=== PATIENT | female | born 1945 | race Hispanic/Latino ===

== ENCOUNTER → 2017-05-05 | Outpatient (CLI) | payer OTHER ==
[~2017-05-05] MED LIST: ASPI-555 PO; CALCIUM PO; CELE200 PO; DEXL60CA3 PO; DOCU-116 PO; FLUT16H NASAL; LACT1CAP78 PO; ROSU5TAB PO; TELM1TAB4 PO; VIT PO; ZOLP10TA6 PO
== END | disposition home or self-care (01) ==
LOC: OIH 12:56
PROVIDERS: ATTEND Internal Medicine
DX: Z01.818 Encounter for other preprocedural examination (principal); I10 Essential (primary) hypertension
CPT/HCPCS: 71046

== ENCOUNTER → 2017-11-08 | Outpatient (CLI) | payer OTHER | END | disposition home or self-care (01) | LOC: RAH 10:47 | PROVIDERS: ATTEND Internal Medicine | DX: Z12.31 Encounter for screening mammogram for malignant neoplasm of breast (principal) | CPT/HCPCS: 77067 ==

== ENCOUNTER → 2018-09-20 | Outpatient (CLI) | payer OTHER | END | disposition home or self-care (01) | LOC: OIH 09:50 | PROVIDERS: ATTEND Internal Medicine | DX: M16.11 Unilateral primary osteoarthritis, right hip (principal) | CPT/HCPCS: 73502 ==

== ENCOUNTER → 2020-08-05 | Outpatient (CLI) | payer MEDICARE ==
[~2020-08-05] MED LIST changes: -ASPI-555 PO; +ASPI-556 PO
== END | disposition home or self-care (01) ==
LOC: RAH 10:54
PROVIDERS: ATTEND Internal Medicine
DX: Z12.31 Encounter for screening mammogram for malignant neoplasm of breast (principal); Z00.01 Encounter for general adult medical examination with abnormal findings
CPT/HCPCS: 77067

== ENCOUNTER → 2022-12-09 | Outpatient (CLI) | payer MEDICARE | END | disposition home or self-care (01) | LOC: RAH 11:47 | PROVIDERS: ATTEND Internal Medicine | DX: K57.90 Diverticulosis of intestine, part unspecified, without perforation or abscess without bleeding (principal); R10.9 Unspecified abdominal pain; M47.815 Spondylosis without myelopathy or radiculopathy, thoracolumbar region; R16.0 Hepatomegaly, not elsewhere classified; I70.0 Atherosclerosis of aorta; T18.2XXA Foreign body in stomach, initial encounter; Y92.89 Other specified places as the place of occurrence of the external cause | CPT/HCPCS: 74176 ==

== ENCOUNTER → 2023-08-24 | Outpatient (CLI) | payer MEDICARE | END | disposition home or self-care (01) | LOC: RAH 14:42 | PROVIDERS: ATTEND Internal Medicine | DX: R59.0 Localized enlarged lymph nodes (principal); N63.10 Unspecified lump in the right breast, unspecified quadrant | CPT/HCPCS: 76882 ==

== ENCOUNTER → 2023-08-31 | Outpatient (CLI) | payer MEDICARE | END | disposition home or self-care (01) | LOC: RAH 14:21 | PROVIDERS: ATTEND Internal Medicine | DX: N63.11 Unspecified lump in the right breast, upper outer quadrant (principal); R92.323 Mammographic fibroglandular density, bilateral breasts; R59.1 Generalized enlarged lymph nodes | CPT/HCPCS: 77066 ==

== ENCOUNTER → 2023-12-08 | Outpatient (CLI) | payer MEDICARE | END | disposition home or self-care (01) | LOC: RAH 13:36 | PROVIDERS: ATTEND Student in an Organized Health Care Education/Training Program | DX: R06.02 Shortness of breath (principal) | CPT/HCPCS: 93306; 93356 ==

== ENCOUNTER 2023-12-19 16:01 | Inpatient (IN) | payer MEDICARE ==
[~2023-12-19] VITALS: Ht 165.1 cm; Wt 108.3 kg
[2023-12-19] MEDS: 0.9%NACL 1000ML 1,000 ML IV ONE (17:44)
--- NOTE | 2023-12-19 17:48 | ERN ---
General Chief Complaint: Direct Admit Stated Complaint: ORTHOSTATIC HYPOTENTION Time Seen by MD: 17:26 Source: patient, family History of Present Illness Initial Comments Patient is a 78-year-old female with a history of right breast cancer recently diagnosed. She was sent in by Dr. Simmons her microsoft access developer for evaluation of possible dehydration. Patient has been receiving chemotherapy and was recently seen at another hospital discharged shortly after being evaluated and found to have elevated white blood cell count. Patient states Dr. Fountain her oncologist advised her continues chemotherapy until lumpectomy was performed. Dr. Pacheco is her primary care physician Allergies: Coded Allergies: butorphanol (Unverified Allergy, Severe, throat closes up, 10/06/14) codeine (Unverified Allergy, Severe, throat closes up, 10/06/14) morphine (Unverified Allergy, Severe, breathing problems, throat closes up, 10/06/14) moxifloxacin (Unverified Allergy, Intermediate, hives, 10/06/14) NSAIDS (Non-Steroidal Anti-Inflamma (Unverified Allergy, Unknown, blisters, 10/06/14) ciprofloxacin (Unverified Allergy, Unknown, diarrhea, 10/06/14) Uncoded Allergies: histavent (Allergy, Unknown, hives, 10/06/14) Home Meds Reported Medications [calcium /vit d3] No Conflict Check, 1 TAB PO tues,thurs,sat 600mg/800mg 11/26/15 Docusate Sodium (Colace) 100 Mg Capsule, 100 MG PO DAILY, CAP 11/26/15 Aspirin (Aspir 81) 81 Mg Tablet.dr, 81 MG PO AM, TAB 10/06/14 Lactobacillus Combo No.11 (Probiotic) 1 Each Cap.sprink, 1 EACH PO AM, CAP.SPRINK 10/06/14 Celecoxib (Celebrex 200Mg Cap) 200 Mg Cap, 200 MG PO AM, CAP 10/06/14 Zolpidem Tartrate (Zolpidem Tartrate) 10 Mg Tablet, 10 MG PO PM, TAB 10/06/14 Rosuvastatin Calcium (Crestor) 5 Mg Tablet, 5 MG PO PM, TAB 10/06/14 Telmisartan/Hydrochlorothiazid (Micardis Hct 40-12.5 mg Tablet) 1 Each Tablet, 1 EACH PO AM, TAB 10/06/14 Dexlansoprazole (Dexilant) 60 Mg , 60 MG PO AM 10/06/14 Fluticasone Propionate (Flonase Nasal [place]) 50 Mcg/[place], 50 MCG NASAL AM, SPRAY 10/06/14 Past Medical History Past Medical History: Diabetes-Type II, Hypertension Medical History Other: CA- RIGHT BREAST Past Surgical History: Other Surgical History Other: RIGHT KNEE, ROS Dictation CONSTITUTIONAL: No chills, no fever, no weakness, no diaphoresis, no malaise. HEAD/FACE: No signs of trauma. EENT: No eye pain, no blurred vision, no tearing, no double vision, no ear pain, no ear discharge, no nose pain, no nasal congestion, no throat pain, no throat swelling, no mouth pain. RESPIRATORY: No cough, no orthopnea, no SOB, no stridor, no wheezing. CARDIOVASCULAR: No chest pain, no edema, no palpitations, no syncope. GASTROINTESTINAL/ABDOMINAL: No abdominal pain, no constipation, no diarrhea, no nausea, no vomiting. GENITOURINARY: No abnormal discharge, no dysuria, no frequent urination, no hematuria. No complaints of pain in the genitals. MUSCULOSKELETAL: No back pain, no gout, no joint pain, no joint swelling, no muscle pain, no muscle stiffness, no neck pain. INTEGUMENTARY: No change in color, no change in hair/nails, no dryness, no lesion, no lumps, no rash. NEUROLOGICAL/PSYCH: No anxiety, not depressed, no emotional problem, no headache, no numbness, no pre-existing deficit, no history of seizures, no tremors, no weakness. HEMATOLOGIC/LYMPHATIC: Not anemic, no history of blood clots, no apparent bleeding, no bruising, glands not swollen. All Systems Negative, Except as Noted. Physical Exam Physical Exam Dictation VITAL SIGNS: Reviewed. GENERAL APPEARANCE: Alert, oriented x3, no acute distress, obese. HEAD AND FACE: Non-traumatic. EYES: PERRL, pink conjunctivas, eyelid no trauma, anterior chamber clear. EARS: Pinnas intact and no signs of trauma or erythema. Ear canals clear and no discharge. TMs no erythema. NOSE: No discharge, no bleeding. OROPHARYNX: Mouth normal, teeth no caries, tongue pink. Pharynx clear, no erythema. Tonsils no exudates, no abscesses noted. Mucous membrane moist. NECK: Supple, non-tender, no thyromegaly, no masses, no JVD, no bruits. BREAST: Deferred. CHEST: No tenderness, no crepitus, no paradoxical movement, no retractions. LUNGS: Clear, well-ventilated, symmetric, no rales, no wheezing, no rhonchi, no stridor, good breath sounds bilaterally. HEART: Regular rate, regular rhythm, no murmur, no gallops. VASCULAR: No peripheral edema. ABDOMEN: Soft, positive bowel sounds, nondistended, no guarding, nontender, no rebound, no masses no hepatomegaly, no splenomegaly, no Nieto's sign, no hernias. RECTAL: Deferred. GENITAL: Deferred. NEUROLOGICAL: Normal speech, gross motor function intact, gross sensory function intact. MUSCULOSKELETAL: Neck nontender, full range of motion, back nontender, full range of motion. EXTREMITIES: Nontender, full range of motion. SKIN: Color pink, dry, no turgor, no rash, no lacerations, no abrasions, no contusions. LYMPHATICS: Deferred. Results Laboratory and Microbiology Labs Reviewed?: Yes EKG/XRAY/US/CT/MRI EKG Comment 12/19/2023 time 5:43 p.m. Ventricular rate 97 Sinus rhythm [place] [address] wave elevation or depression MDM MDM: Differential diagnosis: Lactic acidosis, dehydration, history of right breast cancer Rationale: Tests considered and ordered secondary to shared decision making include: labs, ECG and radiology Previous outside records reviewed: Old ER visits. Risk of complication and/or morbidity or mortality of patient management: None Medications-Per medication reconciliation Need for hospitalization: Patient does meet criteria for hospitalization. Need for emergency major/minor surgery: No There are no social concerns with this patient. Prescription drug management Prescriptions will include symptomatic care Patient's prior external medical records from other ER visits were reviewed by me as indicated. Prior testing and results from previous visits were reviewed. Prior tests were taken into account with medical decision making and resource utilization, independent historian/historians were used to obtain complete medical history. I independently interpreted the test that were performed, results were reviewed by me and considered findings on radiology if ordered. Medical management and examination interpretation discussions were had by me with other qualified healthcare professionals as indicated for the patient's care. Patient is a 78-year-old female coming in to be evaluated for generalized body weakness. Patient was seen by her microsoft access developer Dr. Simmons was concerned that patient was very weak and possibly lead needed dehydration since her history of breast cancer on chemotherapy drains her out especially with extensive diarrheal episodes. Patient will be admitted under the care of hospitalist group for ongoing management of dehydration, lactic acidosis with history of right breast cancer. DX & DISP Disposition: Inpatient Decision to Admit Time: 18:45 Departure Impression: Primary Impression: Lactic acidosis Additional Impressions: Dehydration, Breast cancer, right Condition: Stable Referrals: ANA MESSER MD (PCP) ANNY SWAN MD Dec 19, 2023 17:48
[2023-12-19 18:05] LABS: BASOPHILS # (AUTO) 0.04 K/uL (0.00-0.20); BASOPHILS % (AUTO) 0.4 % (0.0-5.0); EOSINOPHILS # (AUTO) 0.13 K/uL (0.00-0.70); EOSINOPHILS % (AUTO) 1.2 % (0.0-8.0); HEMATOCRIT 30.8 % (36-48); IMMATURE GRANULOCYTE ABSOLUTE 1.96 K/uL (0-1); LYMPHOCYTES # (AUTO) 1.5 K/uL (1.0-4.8); LYMPHOCYTES % (AUTO) 13.4 % (21.0-51.0); MEAN CORPUSCULAR HEMOGLOBIN 27.3 pg (27.0-33.0); MEAN CORPUSCULAR HGB CONC 33.1 g/dL (32.0-36.0); MEAN CORPUSCULAR VOLUME 82.6 fL (79-99); MONOCYTES # (AUTO) 2.4 K/uL (0.1-1.0); MONOCYTES % (AUTO) 21.6 % (3.0-13.0); NEUTROPHILS # (AUTO) 5.2 K/uL (1.8-7.7); NEUTROPHILS % (AUTO) 45.9 % (40.0-77.0); NUCLEATED RED BLOOD CELLS 1.6 % (0.0-0.19); PLATELET COUNT (AUTO) 159 K/uL (130-400); RED BLOOD CELL COUNT(AUTO) 3.73 MIL/uL (4.00-5.50); RED CELL DISTRIBUTION WIDTH 14.8 % (11.0-15.5); WHITE BLOOD COUNT (AUTO) 11.2 K/uL (4.8-10.8)
[2023-12-19 18:11] LABS: APPEARANCE,URINE CLEAR (CLEAR); BILIRUBIN,URINE NEGATIVE (NEGATIVE); COLOR,URINE LIGHT-YELLOW (YELLOW); GLUCOSE, URINE (UA) NEGATIVE (NEGATIVE); KETONES,URINE NEGATIVE (NEGATIVE); LEUKOCYTE ESTERASE ,URINE NEGATIVE Leu/uL (NEGATIVE); NITRATE,URINE NEGATIVE (NEGATIVE); OCCULT BLOOD,URINE NEGATIVE (NEGATIVE); PH,URINE 5.5 (5.0-8.0); PROTEIN,URINE NEGATIVE (NEGATIVE); UROBILINOGEN,URINE 0.2 mg/dL (0.2-1.0)
[2023-12-19 18:12] LABS: ADD UA MICROSCOPIC NO
[2023-12-19 18:16] LABS: CREATININE 1.6 mg/dL (0.5-1.0); POTASSIUM 3.3 mmol/L (3.5-5.1)
[2023-12-19 18:55] LABS: BILIRUBIN,TOTAL 0.4 mg/dL (0.2-1.0); MAGNESIUM 1.4 mg/dL (1.80-2.40); TOTAL PROTEIN, SERUM 7.2 g/dL (6.0-8.3)
[2023-12-19] MEDS ORDERED: acetaMINOPHEN 325 MG TAB PO PRN ×2 (20:00)
[2023-12-19] MEDS ORDERED: ondanSETRON 4MG INJ IVP PRN (20:00)
[2023-12-19 20:11] LABS: PLATELET MORPHOLOGY COMMENT ADEQUATE
[2023-12-19 20:12] LABS: MAN.DIFF COMMENT-IMPRESSION MANUAL DIF
[2023-12-19] MEDS: DEXTROSE 5 % AND 0.9 % NACL 1,000 ML IV SCH (20:30)
[2023-12-19] MEDS: cefTRIAXone 1G VIAL IVPB SCH (20:31)
[2023-12-19 20:44] LABS: BAND NEUTROPHILS % (MANUAL) 23 % (0-2); BLASTS, MANUAL % 2 (0-0); EOSINOPHILS % (MANUAL) 3 % (1-6); LYMPHOCYTES % (MANUAL) 12 % (22-44); METAMYELOCYTES % 3 % (0-0); MONOCYTES % (MANUAL) 15 % (2-9); MYELOCYTES % 10 % (0-0); REACTIVE LYMPHOCYTES 1 % (0-0); SEGMENTED NEUTROPHILS % 31 % (40-70); TOTAL CELLS COUNTED 100
--- NOTE | 2023-12-19 22:38 | HMCIMG ---
CHEST 1VW HISTORY: Chest pain COMPARISON: 05/05/2017 FINDINGS: A frontal projection of the chest was obtained. No acute pulmonary infiltrates is seen. The heart is normal in size. Prominent interstitial markings are seen. Degenerative changes are seen. The study is limited due to patient's body habitus. No evidence of aortic calcification is seen. IMPRESSION: 1. No acute pulmonary infiltrate is seen.
[2023-12-19 22:48] VITALS: BP 152/69; PULSE 103; RESP 20; TEMP 98.9
[2023-12-19] MEDS ORDERED: CELE-125 PO (23:08)
[2023-12-19] MEDS ORDERED: FLUT16H NS (23:08)
[2023-12-19] MEDS ORDERED: ROSU10TA72 PO (23:08)
[2023-12-19] MEDS ORDERED: MULT-660 PO (23:08)
[2023-12-19] MEDS ORDERED: METF-444 PO ×2 (23:08)
[2023-12-19] MEDS ORDERED: BIFI10.5 PO (23:08)
[2023-12-19] MEDS ORDERED: PANT40TA54 PO ×2 (23:08)
[2023-12-19] MEDS ORDERED: ASPI-1197 PO (23:08)
[2023-12-19] MEDS ORDERED: ZOLP10TA2 PO (23:08)
[2023-12-19] MEDS ORDERED: TELM1TAB32 PO (23:08)
[2023-12-19] MEDS ORDERED: CEFD300C3 PO (23:08)
[2023-12-19] MEDS ORDERED: CALC-987 PO (23:08)
[2023-12-20 04:26] VITALS: BP 148/65; PULSE 86; RESP 18; TEMP 98.6
[2023-12-20 04:32] LABS: MEAN CORPUSCULAR HEMOGLOBIN 26.7 pg (27.0-33.0); MEAN CORPUSCULAR HGB CONC 32.7 g/dL (32.0-36.0); MEAN CORPUSCULAR VOLUME 81.8 fL (79-99); NUCLEATED RED BLOOD CELLS 1.3 % (0.0-0.19); RED BLOOD CELL COUNT(AUTO) 3.18 MIL/uL (4.00-5.50); RED CELL DISTRIBUTION WIDTH 14.9 % (11.0-15.5); WHITE BLOOD COUNT (AUTO) 12.9 K/uL (4.8-10.8)
[2023-12-20 04:49] LABS: ALBUMIN 2.6 g/dL (3.5-5.0); BILIRUBIN,TOTAL 0.2 mg/dL (0.2-1.0); CREATININE 1.2 mg/dL (0.5-1.0); POTASSIUM 3.9 mmol/L (3.5-5.1); TOTAL PROTEIN, SERUM 5.8 g/dL (6.0-8.3)
[2023-12-20] MEDS ORDERED: OXYC20TA41 PO (05:29)
--- NOTE | 2023-12-20 06:54 | EKG ---
[facility] Test Date: 2023-12-19 Test Time: 17:43:05 Pat Name: SUJATA MARTINS Department: [facility] Room: 307 1 Gender: F Delimber Operator: [id number] : 1945 Requested By: ANNY SWAN Order Number: [id number] Reading MD: Ralf Houston Measurements Intervals [place] Rate: 97 P: 12 LA: 157 QRS: -36 QRSD: 83 T: -1 QT: 354 QTc: 450 Interpretive Statements Sinus rhythm Left axis deviation Compared to ECG 11/27/2015 10:41:41 Left-axis deviation now present Electronically Signed On 12-21-2023 18:33:16 CHEMISTRY TECHNICAL OFFICER by Ralf Houston Please click the below link to view image of tracing.
--- NOTE | 2023-12-20 07:57 | CONS ---
[facility] CARDIOLOGY CONSULTATION NOTE Date Patient Seen: Dec 20, 2023 Time of Visit: 07:51 Reason for Consultation: [ Orthostatic] History of Present Illness: [Patient is a 78-year-old female with a history of right breast cancer recently diagnosed. I was seeing her in the clinic yesterday for results of 2d echo, which were tere. However, she reported feeling malaise and was ill appearing. Vitals showed borderline low BP and upon orthostatic vitals her HR uyen to >20 beats upon standing. She was baseline tachycardic. She had received chemotherapy on Dec 11 for the first session and she had presented to [facility] on 12/14 for feeling ill and weak. She had WBC 20.3k and pain when swallowing liquid or food. CXR normal. WBC now 12k. ] Past Medical History: [ ] Past Surgical History: [ ] Family History: [ ] Social History: [ ] Habits: [Never] smoker. [Denies] alcohol consumption. [Denies] illicit drug use Home Meds: [ ] Current Meds: [ ] Review of Systems: CONST: [No fever, fatigue, or weight changes.] EYES: [No recent vision problems.] ENT: [No congestion, ear pain, or sore throat.] C/V: [No chest pain, palpitations, or edema.] RESP: [No cough, congestion, wheezing or shortness of breath.] GI: [No abdominal pain, nausea, vomiting, constipation, or diarrhea.] : [No incontinence or dysuria.] SKIN: [No rash.] NEURO: [No headache, focal numbness or weakness, dizziness, or seizures.] PSYCH: [No depression or anxiety.] HEME: [No abnormal bruising or bleeding.] LYMPH: [No swollen glands.] Physical Examination: GENERAL: [No acute distress.] HEAD: [Normal with no signs of head trauma.] EYES: [PERRLA, EOMI, conjunctiva and sclera normal.] ENT: [Hearing grossly intact, normal oropharynx.] NECK: [Supple without JVD. There is no tenderness, lymphadenopathy, or masses. No thyromegaly. Normal carotid upstrokes without bruits.] LUNGS: [Clear breath sounds bilaterally. There are right basilar rales one third of the way up the chest. No wheezes, or rhonchi.] HEART: [Normal rate and rhythm. Normal S1 and S2 without mumurs, gallop or rub.] VASC: [Peripheral pulses +2 bilaterally.] ABD: [Bowel sounds normal, soft, nontender, no masses, no organomegaly. No audible bruits.] : [Not examined] LYMPH: [No lymphadenopathy noted.] EXT: [No clubbing, cyanosis or edema.] SKIN: [No rashes or lesions noted.] NEURO: [Awake, alert, and oriented x3. No focal sensory or strength deficits noted.] Vital Signs (last 8hr) Date Time Temp Pulse Resp B/P (MAP) Pulse Ox O2 Delivery O2 Flow Rate FiO2 12/20/23 04:26 98.6 86 18 148/65 94 Room Air Laboratory: [ ] Hematology Labs: Test 12/20/23 03:54 12/19/23 17:56 Range/Units White Blood Count 12.9 H 4.8-10.8 K/uL Red Blood Count 3.18 L 4.00-5.50 MIL/uL Hemoglobin 8.5 L 12.0-16.0 g/dL Hematocrit 26.0 L 36-48 % Mean Corpuscular Volume 81.8 79-99 fL Mean Corpuscular Hemoglobin 26.7 L 27.0-33.0 pg Mean Corpuscular Hemoglobin Concent 32.7 32.0-36.0 g/dL Red Cell Distribution Width 14.9 11.0-15.5 % Platelet Count 147 130-400 K/uL Mean Platelet Volume 12.2 H 7.5-10.5 fL Nucleated Red Blood Cells 1.3 H 0.0-0.19 % Immature Granulocyte % (Auto) 17.5 H 0-1 % Neutrophils (%) (Auto) 45.9 40.0-77.0 % Lymphocytes (%) (Auto) 13.4 L 21.0-51.0 % Monocytes (%) (Auto) 21.6 H 3.0-13.0 % Eosinophils (%) (Auto) 1.2 0.0-8.0 % Basophils (%) (Auto) 0.4 0.0-5.0 % Neutrophils # (Auto) 5.2 1.8-7.7 K/uL Lymphocytes # (Auto) 1.5 1.0-4.8 K/uL Monocytes # (Auto) 2.4 H 0.1-1.0 K/uL Eosinophils # (Auto) 0.13 0.00-0.70 K/uL Basophils # (Auto) 0.04 0.00-0.20 K/uL Absolute Immature Granulocyte (auto 1.96 H 0-1 K/uL Segmented Neutrophils % 31 L 40-70 % Band Neutrophils % 23 H 0-2 % Lymphocytes % (Manual) 12 L 22-44 % Monocytes % (Manual) 15 H 2-9 % Eosinophils % (Manual) 3 1-6 % Metamyelocytes % 3 H 0-0 % Myelocytes % 10 H 0-0 % Promyelocytes % 0-0 Blast Cells % 2 H 0-0 Differential Comment MANUAL DIF Reactive Lymphocytes 1 H 0-0 % White Cell Morphology Comment See comments Platelet Morphology Comment ADEQUATE Red Blood Cell Morphology ANISO 1+ Chemistry Labs: Test 12/20/23 05:39 12/20/23 03:54 12/19/23 21:25 12/19/23 17:56 Range/Units Whole Blood Glucose 159 H 70-110 MG/DL Sodium Level 137 136-145 mmol/L Potassium Level 3.9 3.5-5.1 mmol/L Chloride Level 101 101-111 mmol/L Carbon Dioxide Level 31 21-32 mmol/L Blood Urea Nitrogen 14 7-18 mg/dL Creatinine 1.2 H 0.5-1.0 mg/dL Glomerular Filtration Rate Calc 47 >90 mL/min Random Glucose 155 H 70-105 mg/dL Total Calcium 8.4 L 8.5-10.1 mg/dL Magnesium Level 1.50 L 1.80-2.40 mg/dL Total Bilirubin 0.2 # 0.2-1.0 mg/dL Aspartate Amino Transf (AST/SGOT) 26 10-37 U/L Alanine Aminotransferase (ALT/SGPT) 32 # 12-78 U/L Alkaline Phosphatase 71 50-136 U/L Total Protein 5.8 L 6.0-8.3 g/dL Albumin 2.6 L 3.5-5.0 g/dL Lactic Acid Level 3.4 H 0.8-2.5 mmol/L Total Creatine Kinase 58 # 21-232 U/L Troponin I High Sensitivity 29 4-50 ng/L Diagnostics / Radiology: [Copy/Paste Echos/Imaging Report here] Assessment: [ Orthostatic after chemo on 12/11 Breast cancer Leukocytosis] Plan: [#Orthostatic after chemo on 12/11 -WBC 20.3 at VB on 12/14, was given swish and swallow and cefdinir as outpatient, now WBC 12k -in clinic patient was pale, weak appearing and pulse uyen >20 beats upon standing -baseline was tachcyardic to 110s bpm -hold amlodipine (recently started by PCP) -telmisartan-hctz 80-12.5 mg qd, will hold HCTZ portion of medication. Once orthostatic vitals are normal, we will only resume telmisartan if BP allows -s/p one liter NS bolus -check orthostatic vitals today -CXR clear, UA negative -recent outpatient 2d echo is normal -Dr Guzman consulted Maria Alejandra Simmons MD ] MARIA ALEJANDRA SIMMONS MD Dec 20, 2023 07:57
[2023-12-20 08:00] VITALS: BP 167/65; PULSE 79; RESP 19; TEMP 98.1
[2023-12-20 08:12] VITALS: O2SAT 95
[2023-12-20] MEDS: PANTOPrazole 40 MG TAB DR PO SCH (08:12)
[2023-12-20] MEDS: MULTIVITAMIN TABLET PO SCH (08:12)
[2023-12-20] MEDS: MAGNESIUM 2GM PREMIX 50ML 50 ML IV PRN (08:12)
[2023-12-20] MEDS: BIFIDOBACTERIUM INFANTIS 10.5 MG PO SCH (08:30)
[2023-12-20] MEDS ORDERED: PANTOPrazole 40 MG TAB DR PO SCH (09:00)
[2023-12-20] MEDS ORDERED: TELMISARTAN PO SCH (09:00)
[2023-12-20] MEDS ORDERED: HYDROCHLOROTHIAZID PO SCH (09:00)
[2023-12-20] MEDS: CALCIUM CARBONATE PO SCH (09:00)
[2023-12-20] MEDS: CEFDINIR 300 MG PO SCH (09:00)
[2023-12-20] MEDS ORDERED: OXYCODONE HCL 10 MG PO PRN (09:00)
[2023-12-20] MEDS: VITAMIN D3 PO SCH (09:00)
[2023-12-20] MEDS: LoSARTan 50 MG TABLET PO SCH (10:38)
[2023-12-20] MEDS: fluTICasone proPIONate 50MCG/SPRAY 16 GM BOTTLE NS SCH (10:38)
[2023-12-20] MEDS: CeleCOXib 200 MG CAP PO SCH (11:40)
[2023-12-20] MEDS: ASPIRIN 81MG CHEW TAB PO SCH (11:40)
[2023-12-20] MEDS: metFORmin HCL 500 MG TABLET PO SCH (11:40)
[2023-12-20 12:30] VITALS: BP_SYST 130; BP_SYST 148; BP_SYST 153; BP_DIAS 61; BP_DIAS 72; BP_DIAS 78; PULSE 86; PULSE 87; RESP 18; RESP 19; TEMP 98.1
--- NOTE | 2023-12-20 13:20 | PN ---
PROGRESS NOTE PROGRESS NOTE DATE OF PROGRESS NOTE: 12/20/23 SUBJECTIVE: she was admitted for dehydration VITAL SIGNS Vital Signs Date Time Temp Pulse Resp B/P (MAP) Pulse Ox O2 Delivery O2 Flow Rate FiO2 12/20/23 12:30 87 18 148/72 96 Room Air 12/20/23 12:30 98.1 12/19/23 22:35 0 21 LABORATORY: Laboratory Result(s) Test 12/19/23 17:53 12/19/23 17:56 12/19/23 21:25 12/20/23 03:54 Urine Color LIGHT-YELLOW (YELLOW) Urine Appearance CLEAR (CLEAR) Urine pH 5.5 (5.0-8.0) Urine Specific [place] 1.016 (1.001-1.031) Urine Protein NEGATIVE mg/dL (NEGATIVE) Urine Glucose (UA) NEGATIVE mg/dL (NEGATIVE) Urine Ketones NEGATIVE mg/dL (NEGATIVE) Urine Occult Blood NEGATIVE (NEGATIVE) Urine Nitrate NEGATIVE (NEGATIVE) Urine Bilirubin NEGATIVE mg/dL (NEGATIVE) Urine Urobilinogen 0.2 mg/dL (0.2-1.0) Urine Leukocyte Esterase NEGATIVE Prasad/uL White Blood Count 11.2 K/uL (4.8-10.8) 12.9 K/uL (4.8-10.8) Red Blood Count 3.73 MIL/uL (4.00-5.50) 3.18 MIL/uL (4.00-5.50) Hemoglobin 10.2 g/dL (12.0-16.0) 8.5 g/dL (12.0-16.0) Hematocrit 30.8 % (36-48) 26.0 % (36-48) Mean Corpuscular Volume 82.6 fL (79-99) 81.8 fL (79-99) Mean Corpuscular Hemoglobin 27.3 pg (27.0-33.0) 26.7 pg (27.0-33.0) Mean Corpuscular Hemoglobin Concent 33.1 g/dL (32.0-36.0) 32.7 g/dL (32.0-36.0) Red Cell Distribution Width 14.8 % (11.0-15.5) 14.9 % (11.0-15.5) Platelet Count 159 K/uL (130-400) 147 K/uL (130-400) Mean Platelet Volume 11.7 fL (7.5-10.5) 12.2 fL (7.5-10.5) Immature Granulocyte % (Auto) 17.5 % (0-1) Neutrophils (%) (Auto) 45.9 % (40.0-77.0) Lymphocytes (%) (Auto) 13.4 % (21.0-51.0) Monocytes (%) (Auto) 21.6 % (3.0-13.0) Eosinophils (%) (Auto) 1.2 % (0.0-8.0) Basophils (%) (Auto) 0.4 % (0.0-5.0) Neutrophils # (Auto) 5.2 K/uL (1.8-7.7) Lymphocytes # (Auto) 1.5 K/uL (1.0-4.8) Monocytes # (Auto) 2.4 K/uL (0.1-1.0) Eosinophils # (Auto) 0.13 K/uL (0.00-0.70) Basophils # (Auto) 0.04 K/uL (0.00-0.20) Absolute Immature Granulocyte (auto 1.96 K/uL (0-1) Segmented Neutrophils % 31 % (40-70) Band Neutrophils % 23 % (0-2) Lymphocytes % (Manual) 12 % (22-44) Monocytes % (Manual) 15 % (2-9) Eosinophils % (Manual) 3 % (1-6) Metamyelocytes % 3 % (0-0) Myelocytes % 10 % (0-0) Promyelocytes % (0-0) Blast Cells % 2 (0-0) Nucleated Red Blood Cells 1.6 % (0.0-0.19) 1.3 % (0.0-0.19) Differential Comment MANUAL DIF Reactive Lymphocytes 1 % (0-0) White Cell Morphology Comment See comments Platelet Morphology Comment ADEQUATE Red Blood Cell Morphology ANISO 1+ Sodium Level 133 mmol/L (136-145) 137 mmol/L (136-145) Potassium Level 3.3 mmol/L (3.5-5.1) 3.9 mmol/L (3.5-5.1) Chloride Level 96 mmol/L (101-111) 101 mmol/L (101-111) Carbon Dioxide Level 31 mmol/L (21-32) 31 mmol/L (21-32) Blood Urea Nitrogen 19 mg/dL (7-18) 14 mg/dL (7-18) Creatinine 1.6 mg/dL (0.5-1.0) 1.2 mg/dL (0.5-1.0) Glomerular Filtration Rate Calc 33 mL/min (>90) 47 mL/min (>90) Random Glucose 143 mg/dL (70-105) 155 mg/dL (70-105) Lactic Acid Level 3.9 mmol/L (0.8-2.5) 3.4 mmol/L (0.8-2.5) Total Calcium 8.8 mg/dL (8.5-10.1) 8.4 mg/dL (8.5-10.1) Magnesium Level 1.40 mg/dL (1.80-2.40) 1.50 mg/dL (1.80-2.40) Total Bilirubin 0.4 mg/dL (0.2-1.0) 0.2 mg/dL (0.2-1.0) Aspartate Amino Transf (AST/SGOT) 29 U/L (10-37) 26 U/L (10-37) Alanine Aminotransferase (ALT/SGPT) 44 U/L (12-78) 32 U/L (12-78) Alkaline Phosphatase 85 U/L (50-136) 71 U/L (50-136) Total Creatine Kinase 58 U/L (21-232) Troponin I High Sensitivity 29 ng/L (4-50) Total Protein 7.2 g/dL (6.0-8.3) 5.8 g/dL (6.0-8.3) Albumin 3.0 g/dL (3.5-5.0) 2.6 g/dL (3.5-5.0) Test 12/20/23 05:39 12/20/23 11:42 Whole Blood Glucose 159 MG/DL (70-110) 147 MG/DL (70-110) INPATIENT MEDS: Current Medications Medications Dose Ordered Sig/Yeison Start Time Stop Time Status Last Admin Acetaminophen 650 mg Q4H PRN 12/19/23 20:00 01/18/24 19:59 Acetaminophen 650 mg Q6H PRN 12/19/23 20:00 01/18/24 19:59 Ondansetron HCl 4 mg Q6H PRN 12/19/23 20:00 01/18/24 19:59 Ceftriaxone Sodium 1 gm Q24H 12/19/23 20:00 12/29/23 19:59 12/19/23 20:31 Magnesium Sulfate 50 ml @ 0 mls/hr PROTOCOL PRN 12/20/23 06:30 01/19/24 06:29 12/20/23 08:12 Aspirin 81 mg DAILY 12/20/23 11:00 01/19/24 10:59 12/20/23 11:40 Celecoxib 200 mg DAILY 12/20/23 11:00 01/19/24 10:59 12/20/23 11:40 Fluticasone Propionate 2 SPRAYS NS DAILY DAILY 12/20/23 09:00 01/19/24 08:59 12/20/23 10:38 Metformin HCl 500 mg DAILY 12/20/23 11:00 01/19/24 10:59 12/20/23 11:40 Metformin HCl 1,000 mg HS 12/20/23 21:00 01/19/24 20:59 Pantoprazole Sodium 40 mg DAILY 12/20/23 09:00 01/19/24 08:59 12/20/23 08:12 Home Med Bifidobacterium Infantis (Align) 10.5MG DAILY 12/20/23 09:00 01/19/24 08:59 Home Med Calcium Carbonate/ Vitamin... DAILY 12/20/23 09:00 01/19/24 08:59 Home Med CEFDINIR 300MG PO BID BID 12/20/23 09:00 01/19/24 08:59 Multivitamins Therapeutic 1 tab DAILY 12/20/23 09:00 01/19/24 08:59 12/20/23 08:12 Home Med Oxycodone HCl 10MG BID PRN 12/20/23 09:00 01/19/24 08:59 Atorvastatin Calcium 40 mg HS 12/20/23 21:00 01/19/24 20:59 Zolpidem Tartrate 10 mg HS 12/20/23 21:00 01/19/24 20:59 Losartan Potassium 50 mg DAILY 12/20/23 10:30 01/19/24 10:29 12/20/23 10:38 PROBLEM LIST: (1) Dehydration ICD Code: E86.0 - Dehydration PLAN: hold bp meds cont hydrate dc if cleared by cardiology ANA MESSER MD Dec 20, 2023 13:20
[2023-12-20 16:00] VITALS: BP 148/63; PULSE 101; RESP 18; TEMP 96.8
[2023-12-20] MEDS ORDERED: atorVAStatin 40 MG TABLET PO SCH (21:00)
[2023-12-20] MEDS ORDERED: metFORmin HCL 500 MG TABLET PO SCH (21:00)
[2023-12-20] MEDS ORDERED: ZOLPidem TARTrate 5 MG TAB PO SCH (21:00)
--- NOTE | 2023-12-20 21:46 | CONS ---
CONSULT NOTE: [Patient is a 78-year-old female with a history of right breast cancer recently diagnosed. I was seeing her in the clinic yesterday for results of 2d echo, which were tere. However, she reported feeling malaise and was ill appearing. Vitals showed borderline low BP and upon orthostatic vitals her HR uyen to >20 beats upon standing. She was baseline tachycardic. She had received chemotherapy on Dec 11 for the first session and she had presented to [facility] on 12/14 for feeling ill and weak. She had WBC 20.3k and pain when swallowing liquid or food. CXR normal. WBC now 12k. ] Past Medical History: [ ] Past Surgical History: [ ] Family History: [ ] Social History: [ ] Habits: [Never] smoker. [Denies] alcohol consumption. [Denies] illicit drug use Home Meds: [ ] Current Meds: [ ] Review of Systems: CONST: [No fever, fatigue, or weight changes.] EYES: [No recent vision problems.] ENT: [No congestion, ear pain, or sore throat.] C/V: [No chest pain, palpitations, or edema.] RESP: [No cough, congestion, wheezing or shortness of breath.] GI: [No abdominal pain, nausea, vomiting, constipation, or diarrhea.] : [No incontinence or dysuria.] SKIN: [No rash.] NEURO: [No headache, focal numbness or weakness, dizziness, or seizures.] PSYCH: [No depression or anxiety.] HEME: [No abnormal bruising or bleeding.] LYMPH: [No swollen glands.] Physical Examination: GENERAL: [No acute distress.] HEAD: [Normal with no signs of head trauma.] EYES: [PERRLA, EOMI, conjunctiva and sclera normal.] ENT: [Hearing grossly intact, normal oropharynx.] NECK: [Supple without JVD. There is no tenderness, lymphadenopathy, or masses. No thyromegaly. Normal carotid upstrokes without bruits.] LUNGS: [Clear breath sounds bilaterally. There are right basilar rales one third of the way up the chest. No wheezes, or rhonchi.] HEART: [Normal rate and rhythm. Normal S1 and S2 without mumurs, gallop or rub.] VASC: [Peripheral pulses +2 bilaterally.] ABD: [Bowel sounds normal, soft, nontender, no masses, no organomegaly. No audible bruits.] : [Not examined] LYMPH: [No lymphadenopathy noted.] EXT: [No clubbing, cyanosis or edema.] SKIN: [No rashes or lesions noted.] NEURO: [Awake, alert, and oriented x3. No focal sensory or strength deficits noted.]\ Assessment 1. New diagnosis of breast cancer with the patient received chemotherapy treatment 2. Chemo induced anemia 3. Dehydration 4. Orthostatic hypotension Plan 1. No need for blood product transfusion 2. It seems this patient was given IV fluid. With the patient is doing very well. If this patient is stable the patient could be discharged to follow-up with me in 1 week CURRENT MEDICATIONS Acetaminophen (TYLenol 325MG TAB) 650 mg Q4H PRN PO TEMPERATURE GREATER THAN 101.5; Start 12/19/23 at 20:00; Stop 12/20/23 at 17:30; Status DC Acetaminophen (TYLenol 325MG TAB) 650 mg Q6H PRN PO MILD PAIN (1-3); Start 12/19/23 at 20:00; Stop 12/20/23 at 17:30; Status DC Aspirin (Aspirin 81mg Chew Tab) 81 mg DAILY PO Last administered on 12/20/23at 11:40; Admin Dose 81 MG; Start 12/20/23 at 11:00; Stop 12/20/23 at 17:30; Status DC Atorvastatin Calcium (LIPItor 40MG) 40 mg HS PO ; Start 12/20/23 at 21:00; Stop 12/20/23 at 17:30; Status DC Ceftriaxone Sodium (ROCEphine 1G INJ) 1 gm Q24H IVPB Last administered on 12/19/23at 20:31; Admin Dose 1 GM; Start 12/19/23 at 20:00; Stop 12/20/23 at 17:30; Status DC Celecoxib (CeleBREX 200MG CAP) 200 mg DAILY PO Last administered on 12/20/23at 11:40; Admin Dose 200 MG; Start 12/20/23 at 11:00; Stop 12/20/23 at 17:30; Status DC Dextrose/Sodium Chloride 1,000 ml @ 125 mls/hr Q8H IV Last administered on 12/19/23at 20:30; Admin Dose 125 MLS/HR; Start 12/19/23 at 20:00; Stop 12/20/23 at 06:30; Status DC Fluticasone Propionate (FLOnase 50 mcg/ spray 16g bottle) 2 SPRAYS NS DAILY DAILY NS Last administered on 12/20/23at 10:38; Admin Dose 1 SPRAYS; Start 12/20/23 at 09:00; Stop 12/20/23 at 17:30; Status DC Home Med (Home Medication) Bifidobacterium Infantis (Align) 10.5MG DAILY PO ; Start 12/20/23 at 09:00; Stop 12/20/23 at 17:30; Status DC Home Med (Home Medication) CEFDINIR 300MG PO BID BID PO ; Start 12/20/23 at 09:00; Stop 12/20/23 at 17:30; Status DC Home Med (Home Medication) Calcium Carbonate/ Vitamin... DAILY PO ; Start 12/20/23 at 09:00; Stop 12/20/23 at 17:30; Status DC Home Med (Home Medication) Oxycodone HCl 10MG BID PRN PO P610; Start 12/20/23 at 09:00; Stop 12/20/23 at 17:30; Status DC Home Med (Home Medication) Telmisartan/ Hydrochlorothiazid (Telmisartan-H... DAILY PO ; Start 12/20/23 at 09:00; Stop 12/20/23 at 08:02; Status DC Losartan Potassium (CozAAR 50 mg TAB) 50 mg DAILY PO Last administered on 12/20/23at 10:38; Admin Dose 50 MG; Start 12/20/23 at 10:30; Stop 12/20/23 at 17:30; Status DC Magnesium Sulfate 50 ml @ 0 mls/hr PROTOCOL PRN IV MAGNESIUM PROTOCOL Last administered on 12/20/23at 08:12; Admin Dose 25 MLS/HR; Start 12/20/23 at 06:30; Stop 12/20/23 at 17:30; Status DC Metformin HCl (glucoPHAGE) 500 mg DAILY PO Last administered on 12/20/23at 11:40; Admin Dose 500 MG; Start 12/20/23 at 11:00; Stop 12/20/23 at 17:30; Status DC Metformin HCl (glucoPHAGE) 1,000 mg HS PO ; Start 12/20/23 at 21:00; Stop 12/20/23 at 17:30; Status DC Multivitamins Therapeutic (Multivitamin Tablet) 1 tab DAILY PO Last administered on 12/20/23at 08:12; Admin Dose 1 TAB; Start 12/20/23 at 09:00; Stop 12/20/23 at 17:30; Status DC Ondansetron HCl (zoFRAN 4MG INJ) 4 mg Q6H PRN IVP NAUSEA/VOMITING; Start 12/19/23 at 20:00; Stop 12/20/23 at 17:30; Status DC Pantoprazole Sodium (PROTonix 40MG TAB) 40 mg DAILY PO ; Start 12/20/23 at 09:00; Stop 12/20/23 at 07:34; Status DC Pantoprazole Sodium (PROTonix 40MG TAB) 40 mg DAILY PO Last administered on 12/20/23at 08:12; Admin Dose 40 MG; Start 12/20/23 at 09:00; Stop 12/20/23 at 17:30; Status DC Zolpidem Tartrate (AmbIEN) 10 mg HS PO ; Start 12/20/23 at 21:00; Stop 12/20/23 at 17:30; Status DC LAB RESULTS 12/20/23 11:42: Whole Blood Glucose 147H 12/20/23 03:54: White Blood Count 12.9H, Red Blood Count 3.18L, Hemoglobin 8.5L, Hematocrit 26.0L, Mean Corpuscular Volume 81.8, Mean Corpuscular Hemoglobin 26.7L, Mean Corpuscular Hemoglobin Concent 32.7, Red Cell Distribution Width 14.9, Platelet Count 147, Mean Platelet Volume 12.2H, Nucleated Red Blood Cells 1.3H, Sodium Level 137, Potassium Level 3.9, Chloride Level 101, Carbon Dioxide Level 31, Blood Urea Nitrogen 14, Creatinine 1.2H, Glomerular Filtration Rate Calc 47, Random Glucose 155H, Total Calcium 8.4L, Magnesium Level 1.50L, Total Bilirubin 0.2#, Aspartate Amino Transf (AST/SGOT) 26, Alanine Aminotransferase (ALT/SGPT) 32#, Alkaline Phosphatase 71, Total Protein 5.8L, Albumin 2.6L 12/19/23 21:25: Lactic Acid Level 3.4H 12/19/23 17:56: Immature Granulocyte % (Auto) 17.5H, Neutrophils (%) (Auto) 45.9, Lymphocytes (%) (Auto) 13.4L, Monocytes (%) (Auto) 21.6H, Eosinophils (%) (Auto) 1.2, Basophils (%) (Auto) 0.4, Neutrophils # (Auto) 5.2, Lymphocytes # (Auto) 1.5, Monocytes # (Auto) 2.4H, Eosinophils # (Auto) 0.13, Basophils # (Auto) 0.04, Absolute Immature Granulocyte (auto 1.96H, Segmented Neutrophils % 31L, Band Neutrophils % 23H, Lymphocytes % (Manual) 12L, Monocytes % (Manual) 15H, Eosinophils % (Manual) 3, Metamyelocytes % 3H, Myelocytes % 10H, Promyelocytes % , Blast Cells % 2H, Differential Comment MANUAL DIF, Reactive Lymphocytes 1H, White Cell Morphology Comment See comments, Platelet Morphology Comment ADEQUATE, Red Blood Cell Morphology ANISO 1+, Total Creatine Kinase 58#, Troponin I High Sensitivity 29 12/19/23 17:53: Urine Color LIGHT-YELLOW, Urine Appearance CLEAR, Urine pH 5.5, Urine Specific [place] 1.016, Urine Protein NEGATIVE, Urine Glucose (UA) NEGATIVE, Urine Ketones NEGATIVE, Urine Occult Blood NEGATIVE, Urine Nitrate NEGATIVE, Urine Bilirubin NEGATIVE, Urine Urobilinogen 0.2, Urine Leukocyte Esterase NEGATIVE TEODORA DAVILA MD Dec 20, 2023 21:46
--- NOTE | 2023-12-21 00:52 | HP ---
HISTORY OF PRESENT ILLNESS: The patient of Dr. Rosa who was sent from roll operator's office for direct admission without any orders or any note available. The patient refers that she went to have a followup and was feeling sick, was found to be hypotensive and was sent to the Emergency Room. Apparently, she had a recent chemotherapy for treatment of right breast cancer. The patient apparently was found to have also an elevated WBC count ____. The patient could not give any more information. PAST MEDICAL HISTORY: Right breast cancer, on chemotherapy. PAST SURGICAL HISTORY: Noncontributory. MEDICATIONS: None REVIEW OF SYSTEMS: Having no fever, chills, seizures, loss of consciousness. No sore throat, diplopia, dysphagia or dysphonia. No chest pain, palpitations or dizziness. No cough, wheezes, or rhonchi. No abdominal pain. No nausea, vomiting, or diarrhea. No dysuria, urgency, or frequency. No hallucinations, delusions, no suicidal ideation. No hematemesis, melena or rectal bleeding. PHYSICAL EXAMINATION: GENERAL: She is awake, alert, oriented in person, time, and place, not in distress. VITAL SIGNS: Blood pressure 148/65, pulse 86, respiratory rate 18. HEENT: Normocephalic, atraumatic. LUNGS: Clear to auscultation. HEART: S1, S2 are distant. ABDOMEN: Soft, nontender. EXTREMITIES: No clubbing, cyanosis. LABORATORY DATA: WBC count in the Emergency Room 11.2, hemoglobin 10.2, platelets 159. Sodium 137, potassium 3.9, BUN 14, creatinine 1.2, albumin 2.6. Lactic acid was 3.4. ASSESSMENT AND PLAN: Hypotension, leukocytosis, positive lactic acid. The patient on chemotherapy for treatment of breast cancer. The patient will be admitted for observation. Start her on IV fluids. Start her on IV antibiotics. Sent for cultures. Continue home medications except for antihypertensive and the patient will be transferred to Dr. Rosa's service. Type 2 diabetes, dyslipidemia. Continue home medications. TID: [id number] RECEIPT: [id number]
== END 2023-12-20 17:25 | disposition home or self-care (01) | DRG 312 ==
LOC: EDH 16:01 → DIRECT 16:02 → 3BH 22:31
PROVIDERS: ADMIT Internal Medicine; ATTEND Internal Medicine
DX: I95.1 Orthostatic hypotension (principal); E87.20 Acidosis, unspecified; E86.0 Dehydration; C50.911 Malignant neoplasm of unspecified site of right female breast; D64.81 Anemia due to antineoplastic chemotherapy; T45.1X5A Adverse effect of antineoplastic and immunosuppressive drugs, initial encounter; D72.829 Elevated white blood cell count, unspecified; E11.9 Type 2 diabetes mellitus without complications; E78.5 Hyperlipidemia, unspecified; I10 Essential (primary) hypertension; Z88.1 Allergy status to other antibiotic agents; Z88.5 Allergy status to narcotic agent; Z88.8 Allergy status to other drugs, medicaments and biological substances
CPT/HCPCS: 36415; 71045; 80053; 81003; 82550; 82948; 83605; 83735; 84484; 85025; 85027; 93005; G0378; J0696; J3475; J7042